=== PATIENT | female | born 1960 | race Caucasian/White ===

== ENCOUNTER 2024-07-08 07:31 | Outpatient (OUT) | payer OTHER, SELFPAY ==
--- NOTE | 2024-07-08 07:49 | CT_ITS ---
[address] [address] Patient Name: EMANI PICHARDO MRN: [id number] date: 1960 Sex: F Assigned Patient Location: LAB Current Patient Location: Accession/Order Number: [id number] Exam Date: 07/08/2024 08:40 Report Date: 07/09/2024 05:40 At the request of: NICOLE BENOIT Procedure: CT abdomen pelvis wo/w con EXAMINATION: CT abdomen pelvis wo/w con HISTORY: History Of Kidney Stones, Feeling Of Emptying Bladder COMPARISON: No relevant comparison available. TECHNIQUE: Axial, Coronal, and Sagittal images were obtained without and/or with IV contrast as indicated by examination type. Dose reduction techniques were achieved by using automated exposure control and/or adjustment of mA and/or kV according to patient size and/or use of iterative reconstruction technique. FINDINGS: LUNG BASES: No visible pulmonary or pleural disease. LIVER: No enlargement, atrophy, suspicious density, or significant focal lesion. BILIARY: Cholecystectomy. PANCREAS: No lesion, fluid collection, or abnormal duct dilatation. SPLEEN: No enlargement or focal lesion. ADRENALS: No mass or enlargement. KIDNEYS: Numerous vascular calcifications bilaterally; no appreciable urinary tract calculi. Unremarkable ureters. BOWEL/MESENTERY: Prior sigmoid resection and anastomosis. No visible mass, obstruction, or bowel wall thickening. AORTA/VASCULAR: Marked atherosclerotic disease of aorta and branches. No aneurysm. RETROPERITONEUM: No mass or adenopathy. LYMPH NODES: No adenopathy. URINARY BLADDER: No visible focal wall thickening, lesion, or calculus. PELVIC ORGANS: No visible mass. Pelvic organs appropriate for patient age. ABDOMINAL WALL: No mass or hernia. BONES: Marked degenerative disc disease L4-L5, L5-S1. No fracture or suspicious bone abnormality. OTHER: Negative. CT/CT abdomen pelvis wo/w con IMPRESSION: 1. No urinary tract calculi or obstructive uropathy (there are numerous vascular calcifications from atherosclerotic disease within the kidneys). No suspicious findings to account for patient's symptoms. 2. Marked atherosclerotic disease. 3. Marked degenerative disc disease of lower lumbar spine. Electronically authenticated by: GREGORIO QUEVEDO Date: 07/09/2024 05:40
[2024-07-08 08:26] LABS: Estimated GFR (African America >60 (>=60 mL/min/1.73m^2); Estimated GFR (Non-African Ame 56 (>=60 mL/min/1.73m^2)
== END 2024-07-08 07:32 | disposition home or self-care (01) ==
LOC: LAB 07:31
PROVIDERS: PCP Family Medicine; Visit Provider Urology
DX: R31.21 Asymptomatic microscopic hematuria (principal); Z87.442 Personal history of urinary calculi; R39.14 Feeling of incomplete bladder emptying; M51.369 Other intervertebral disc degeneration, lumbar region without mention of lumbar back pain or lower extremity pain; I70.90 Unspecified atherosclerosis
CPT/HCPCS: 36415; 74178; 82565; Q9967

== ENCOUNTER 2024-08-11 07:54 | Day surgery (SDC) | payer OTHER, SELFPAY ==
[2024-08-11 08:43] VITALS: BP 149/67; PULSE 69; O2SAT 96
[2024-08-11] MEDS: LIDOCAINE 2% JELLY 10 ML UR (08:45)
[2024-08-11 08:53] VITALS: BP 154/71; PULSE 68; O2SAT 99
--- NOTE | 2024-08-11 08:53 | PM.URSON ---
Urology Surgery Operative Note Operative Note Procedure Date: 08/11/24 Time Out Performed: yes Pre-op Diagnosis: Microhematuria Post-op Diagnosis: same as pre-op Procedures performed: 1. Cystoscopy. Anesthesia: local Primary Surgeon: Zev Jolley Complications: None Estimated blood loss (mL): 0 Findings: No bladder tumors or stones Indications for Procedures: This lady has microhematuria of unknown etiology. Her CAT scan is essentially negative. She now presents for cystoscopy. She has signed an intense risk were explained. Detailed description of Procedure: The patient was kept on the gurney bed and brought into the endoscopy suite. She was in the supine position. Her legs were frog-legged. Timeout was done by all parties in the room. Genitalia were sterilely prepped and draped in the usual fashion. 2% lidocaine was passed per urethra. I then passed a flexible cystoscope per urethra and into the bladder. The urethra was unremarkable. Careful panendoscopy in the bladder revealed no evidence of any tumors, lesions or stones. The scope was retroflexed and no new findings were noted. The scope was then removed. With Valsalva maneuvers she demonstrated no evidence of stress incontinence or pelvic prolapse. She was then discharged to home.
== END 2024-08-11 09:03 | disposition home or self-care (01) ==
PROVIDERS: PCP Family Medicine; Visit Provider Urology
PROC: (CPT 52000; principal; 2024-08-11 08:30)
DX: R31.29 Other microscopic hematuria (principal); I25.10 Atherosclerotic heart disease of native coronary artery without angina pectoris; E11.9 Type 2 diabetes mellitus without complications; I10 Essential (primary) hypertension; E78.5 Hyperlipidemia, unspecified; Z79.84 Long term (current) use of oral hypoglycemic drugs
CPT/HCPCS: 52000